=== PATIENT | female | born 1955 | race Hispanic/Latino ===

== ENCOUNTER → 2024-03-31 | Day surgery (SDC) | payer MEDICARE ==
[2024-03-20 13:39] LABS: BASOPHILS % 0.2 % (0.0-1.0); EOSINOPHILS % 0.4 % (0.0-6.0); HEMATOCRIT 44.6 % (34.2-44.1); HEMOGLOBIN 14.2 g/dL (12.0-16.0); LYMPHOCYTES # (AUTO) 1.6 (1.0-3.2); LYMPHOCYTES % 19.3 % (18.0-39.1); MEAN CORPUSCULAR HEMOGLOBIN 29.7 pg (28-32); MEAN CORPUSCULAR HGB CONC 31.8 g/dL (31-35); MEAN CORPUSCULAR VOLUME 93.3 fL (81-99); MONOCYTES # (AUTO) 0.6 (0.2-0.8); NEUTROPHILS # (AUTO) 5.9 (2.1-6.9); NEUTROPHILS % 72.9 % (38.7-80.0); PLATELET COUNT 161 x10e3/uL (140-360); RED BLOOD COUNT 4.78 x10e6/uL (3.6-5.1); RED CELL DISTRIBUTION WIDTH 14.2 % (11.7-14.4); WHITE BLOOD COUNT 8.05 x10e3/uL (4.8-10.8)
[2024-03-20 13:51] LABS: ANION GAP 12.9 mmol/L (8-16); CREATININE, SERUM 0.75 mg/dL (0.57-1.11); POTASSIUM 3.9 mmol/L (3.5-5.1)
[~2024-03-31] MED LIST: ASPIRIN81 MG PO; ATORVASTATIN CA10 MG PO; CALCIUM ACETAT667 MG PO; DEXAMETHASONE SOD PHOS INJ 4 MG/ML SDV ONE; FENTANYL CITRATE/PF 100MCG/2 ML INJ ONE; FLONASE ALLERG9.9 ML INH; GEMTESA75 MG PO; GLUCOTROL XL10 MG PO; LAC-HYDRIN FIV226 GM TOP; LIDOCAINE HCL 2% LOCAL INJ 5 ML SDV VIAL INJ ONE; MAGOX 400400 MG PO; MELOXICAM7.5 MG PO; METFORMIN HCL500 MG PO; MIDAZOLAM HCL 2 MG/2 ML VIAL ONE; ONDANSETRON HCL INJ 2MG/ML 2ML 2 MG/ML VIAL ONE; PREMARIN VAG; PROPOFOL IV EMULSION 10 MG/ML 20 ML VIAL ONE; SCOPOLAMINE 1 MG PATCH ONE; TRIAMCINOLONE A15 G1 TOP; VITAMIN D31250 MCG; [UNRECOGNIZED DRUG - OTHER]
[2024-03-31] MEDS: LACTATED RINGER'S 1,000 ML ONE (11:24)
[2024-03-31] MEDS: CEFAZOLIN SODIUM 2 GM ONE (11:24)
[2024-03-31 13:12] VITALS: TEMP 97
[2024-03-31 14:20] VITALS: BP 138/93; PULSE 66; RESP 16; O2SAT 96
== END | disposition home or self-care (01) ==
LOC: OR 10:19
PROVIDERS: ATTEND Podiatrist Foot & Ankle Surgery
DX: S92.352A Displaced fracture of fifth metatarsal bone, left foot, initial encounter for closed fracture (principal); E11.9 Type 2 diabetes mellitus without complications; I10 Essential (primary) hypertension; E78.00 Pure hypercholesterolemia, unspecified; X58.XXXA Exposure to other specified factors, initial encounter; Z01.810 Encounter for preprocedural cardiovascular examination; Z01.812 Encounter for preprocedural laboratory examination; Z01.818 Encounter for other preprocedural examination; Z79.82 Long term (current) use of aspirin; Z79.84 Long term (current) use of oral hypoglycemic drugs; Z79.1 Long term (current) use of non-steroidal anti-inflammatories (NSAID); Z79.899 Other long term (current) drug therapy
CPT/HCPCS: 28485; 36415 ×2; 71046; 80048; 82948; 85025; 93005; C1713; C1762; C1769; J1100; J2003; J2250; J2405; J2704; J3010; J7121